=== PATIENT | female | born 1985 | race African-American/Black ===

== ENCOUNTER 2018-08-12 17:03 | Inpatient (IN) | payer OTHER ==
[2018-08-12 19:09] VITALS: BMI 39.3
--- NOTE | 2018-08-12 20:41 | HP ---
CIWA Score - Admission Criteria OASAS Guidelines: Admission for Medically Managed Detox: Requires at least one of the followin. CIWA greater than 12 2. Seizures within the past 24 hours 3. Delirium tremens within the past 24 hours 4. Hallucinations within the past 24 hours 5. Acute intervention needed for co occurring medical disorder 6. Acute intervention needed for co occurring psychiatric disorder 7. Severe withdrawal that cannot be handled at a lower level of care (continued vomiting, continued diarrhea, abnormal vital signs) requiring intravenous medication and/or fluids 8. Admission ROS S - HPI Chief Complaint: I want to stop using drugs Allergies/Adverse Reactions: Allergies Allergy/AdvReac Type Severity Reaction Status Date / Time Fish Containing Products AdvReac Severe Itching Verified 08/12/18 18:59 History of Present Illness: Began using age 21, using $20/day sometimes more. Sometimes will use all day and all night. Also smoking marijuana 3x weekly. Has been smoking consistently without stopping. Exam Limitations: No Limitations - Ebola screening Have you traveled outside of the country in the last 21 days: No Have you had contact with anyone from an Ebola affected area: No - Review of Systems Constitutional: No Symptoms Reported EENT: reports: No Symptoms Reported Respiratory: reports: No Symptoms reported Cardiac: reports: No Symptoms Reported GI: reports: No Symptoms Reported : reports: No Symptoms Reported Musculoskeletal: reports: No Symptoms Reported Integumentary: reports: No Symptoms Reported Neuro: reports: No Symptoms reported Endocrine: reports: No Symptoms Reported Hematology: reports: No Symptoms Reported Psychiatric: reports: Mood/Affect Appropiate Patient History - Patient Medical History Hx Anemia: No Hx Asthma: No Hx Chronic Obstructive Pulmonary Disease (COPD): No Hx Cancer: No Hx Cardiac Disorders: No Hx Congestive Heart Failure: No Hx Hypertension: No Hx Hypercholesterolemia: No Hx Pacemaker: No HX Cerebrovascular Accident: No Hx Seizures: No Hx Dementia: No Hx Diabetes: No Hx Gastrointestinal Disorders: No Hx Liver Disease: Yes Hx Genitourinary Disorders: No Hx Sexually Transmitted Disorders: No Hx Renal Disease (ESRD): No Hx Thyroid Disease: No Hx Human Immunodeficiency Virus (HIV): No Hx Hepatitis C: Yes Hx Depression: Yes Hx Suicide Attempt: No Hx Bipolar Disorder: No Hx Schizophrenia: Yes - Patient Surgical History Past Surgical History: Yes Hx Section: Yes (c section x 2) - Reproductive History Patient is a Female of Child Bearing Age (11 -55 yrs old): Yes Last Menstrual Period: 08/01/18 LMP comment: Patient : No - Smoking Cessation Smoking history: Current every day smoker Have you smoked in the past 12 months: Yes Aproximately how many cigarettes per day: 10 Initiated information on smoking cessation: Yes 'Breaking Loose' booklet given: 08/12/18 - Substances abused Crack Substance route: Smoking Frequency: Daily Amount used: 20 dollars Age of first use: 21 Date of last use: 08/06/18 Cocaine Substance route: Smoking Frequency: Daily Amount used: 20 dollars Age of first use: 21 Date of last use: 08/06/18 Marijuana/Hashish Substance route: Smoking Frequency: Daily Amount used: 10 dollars worth Age of first use: Date of last use: 08/06/18 Family Disease History - Family Disease History Family Disease History: Other: Mother (marijuana) Admission Physical Exam BHS - Vital Signs Vital Signs: Vital Signs - 24 hr 08/12/18 18:57 Temperature 97.1 F L Pulse Rate 81 Respiratory 16 Rate Blood Pressure 161/88 - Physical General Appearance: Yes: No Apparent Distress HEENTM: Yes: EOMI Respiratory: Yes: Lungs Clear Neck: Yes: Within Normal Limits Breast: Yes: Breast Exam Deferred Cardiology: Yes: Within Normal Limits, Regular Rate, S1, S2 Abdominal: Yes: Within Normal Limits Genitourinary: Yes: Within Normal Limits Back: Yes: Within Normal Limits Musculoskeletal: Yes: Within Normal Limits Extremities: Yes: Within Normal Limits, Other (mild crepitusleft knee echymoses does not recall trauma) Neurological: Yes: Within Normal Limits, stuntman II-XII NML intact, Fully Oriented, Alert, Motor Strength 5/5 Integumentary: Yes: Within Normal Limits Lymphatic: Yes: Within Normal Limits - Diagnostic (1) Cocaine abuse Current Visit: Yes Status: Acute (2) Cannabis abuse Current Visit: Yes Status: Acute (3) Schizophrenia Current Visit: Yes Status: Chronic (4) Hepatitis C Current Visit: Yes Status: Chronic Breathalyzer - Breathalyzer Breathalyzer: 0 Urine Drug Screen - Test Device Lot number: [id number] Expiration date: 04/07/20 - Control Is test valid?: Yes - Results Drug screen NEGATIVE: No Urine drug screen results: THC-Marijuana, PATRICK-Cocaine Inpatient Rehab Admission - Rehab Decision to Admit Inpatient rehab admission?: Yes - Initial Determination Are CD services needed?: No Free of communicable disease: Yes Not in need of hospitalization: No - Rehab Admission Criteria Previous failed treatment: No Poor recovery environment: Yes Comorbidities: Yes Lacks judgement: Yes Patient is meeting Inpatient Rehab admission criteria:: Yes (pt meets criteria based on continuous use pattern, unsafe environment)
[2018-08-12] MEDS ORDERED: guaiFENesin 200 MG/10 ML 10 ML UNIT-DOSE CUPS PO PRN (20:48)
[2018-08-12] MEDS ORDERED: P-EPHED 60MG/TRIPROLIDI 2.5MG TABLET PO PRN (20:48)
[2018-08-12] MEDS ORDERED: MAG HYDROX/AL HYDROX/SIMETH 30 ML UNIT-DOSE CUP PO PRN (20:48)
[2018-08-12] MEDS ORDERED: MAGNESIUM HYDROX 2400MG/30ML ORAL SUSPENSION 30 ML CUP PO PRN (20:48)
[2018-08-12] MEDS ORDERED: MENTHOL/PHENOL 1 EACH UD MM PRN (20:48)
[2018-08-12] MEDS ORDERED: LOPERAMIDE HCL 2 MG CAPSULE PO PRN (20:48)
[2018-08-12] MEDS ORDERED: MAGNESIUM CITRATE 300 ML BOTTLE PO PRN (20:48)
[2018-08-12] MEDS: THIAMINE HCL 100 MG TABLET (FP) PO SCH (22:24)
[2018-08-13] MEDS: PRENATAL VITAMINS W/ FOLIC ACID TABLET (FP) PO SCH (10:40)
[2018-08-13 12:48] LABS: URINE APPEARANCE CLEAR; URINE BILIRUBIN NEGATIVE (NEGATIVE); URINE COLOR YELLOW; URINE GLUCOSE (UA) NEGATIVE (NEGATIVE); URINE KETONE NEGATIVE (NEGATIVE); URINE LEUK ESTERASE NEGATIVE (NEGATIVE); URINE NITRITE NEGATIVE (NEGATIVE); URINE PROTEIN NEGATIVE (NEGATIVE); URINE UROBILINOGEN 0.2 mg/dL (0.2-1.0)
[2018-08-13] MEDS: THIAMINE HCL 100 MG TABLET (FP) PO SCH (21:41)
[2018-08-14] MEDS: PRENATAL VITAMINS W/ FOLIC ACID TABLET (FP) PO SCH (10:16)
[2018-08-14] MEDS: THIAMINE HCL 100 MG TABLET (FP) PO SCH (21:11)
[2018-08-15] MEDS: PRENATAL VITAMINS W/ FOLIC ACID TABLET (FP) PO SCH (09:46)
[2018-08-15 14:52] LABS: HEMATOCRIT 34.4 % (32.4-45.2); HEMOGLOBIN 11.4 GM/dL (10.7-15.3); MEAN CELL VOLUME 84.7 fl (80-96); MEAN PLT VOLUME 9.9 fl (7.5-11.1); PLATELET COUNT 165 K/MM3 (134-434); RBC 4.07 M/mm3 (3.60-5.2); WHITE BLOOD COUNT 4.2 K/mm3 (4.0-10.0)
[2018-08-15 15:22] LABS: ALBUMIN 3.2 g/dl (3.4-5.0); BILIRUBIN,TOTAL 0.3 mg/dL (0.2-1); CALCIUM 8.5 mg/dL (8.5-10.1); CREATININE 0.7 mg/dL (0.55-1.3); POTASSIUM 4.1 mmol/L (3.5-5.1)
[2018-08-15 15:30] LABS: BLOOD UREA NITROGEN 14.9 mg/dL (7-18)
[2018-08-15] MEDS: THIAMINE HCL 100 MG TABLET (FP) PO SCH (21:24)
[2018-08-16] MEDS: PRENATAL VITAMINS W/ FOLIC ACID TABLET (FP) PO SCH (09:33)
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
[2018-08-16] MEDS: THIAMINE HCL 100 MG TABLET (FP) PO SCH (21:23)
[2018-08-16] MEDS: IBUPROFEN 400 MG TABLET (FP) PO PRN (21:23)
[2018-08-17] MEDS: PRENATAL VITAMINS W/ FOLIC ACID TABLET (FP) PO SCH (09:27)
--- NOTE | 2018-08-17 12:17 | PN ---
S Progress Note (SOAP) Subjective: patient reporting that she has arthritis in the right knee. Objective: Full ROM, crepitis on flexion/extension. ROM-WNL 08/17/18 12:15 Assessment: Osteoarthritis, right knee 08/17/18 12:15 Plan: PLAN: patient has tylenol and motrin. Advised patient to ask for tylenol and if no effective use motrin. Also instructed to continue to walk to avoid stiffness in the joint. Will continue to monitor, and if needed increase dose.
[2018-08-17] MEDS: THIAMINE HCL 100 MG TABLET (FP) PO SCH (21:10)
[2018-08-18] MEDS: PRENATAL VITAMINS W/ FOLIC ACID TABLET (FP) PO SCH (09:42)
[2018-08-18] MEDS: THIAMINE HCL 100 MG TABLET (FP) PO SCH (21:24)
[2018-08-18] MEDS: MELATONIN 5 MG TABLETS PO PRN (21:25)
[2018-08-19] MEDS: PRENATAL VITAMINS W/ FOLIC ACID TABLET (FP) PO SCH (10:15)
--- NOTE | 2018-08-19 13:44 | PN ---
[facility] Progress Note (SOAP) Subjective: " I would like to be tested for DM. I have gained weight and my DrBrigette told me I had sugar problems before." Patient has Family hx of dm- father however denies increased thirst, urination and hunger. Objective: 08/19/18 13:42 Vital Signs Temperature 97.1 F L 08/12/18 18:57 Pulse Rate 81 08/12/18 18:57 Respiratory Rate 18 08/19/18 07:06 Blood Pressure 161/88 08/12/18 18:57 O2 Sat by Pulse Oximetry (%) Laboratory Tests 08/12/18 08/13/18 08/15/18 20:22 08:00 13:00 WBC RBC Hgb Hct MCV MCH MCHC RDW Plt Count MPV Sodium Potassium Chloride Carbon Dioxide Anion Gap BUN Creatinine Est GFR (CKD-EPI)AfAm Est GFR (CKD-EPI)NonAf Random Glucose Calcium Total Bilirubin AST ALT Alkaline Phosphatase Total Protein Albumin Urine Color Yellow Urine Appearance Clear Urine pH 5.0 Ur Specific Bulger 1.026 Urine Protein Negative Urine Glucose (UA) Negative Urine Ketones Negative Urine Blood Negative Urine Nitrite Negative Urine Bilirubin Negative Urine Urobilinogen 0.2 Ur Leukocyte Esterase Negative POC Urine HCG, Qual Negative RPR Titer TB Test (QFT) Nil 0.09 TB Test (QFT) Mitogen >10.00 TB Test (QFT) Antigen 0.20 TB Test (QFT) Negative TB Positive Criteria 08/15/18 08/15/18 08/15/18 13:15 13:15 13:15 WBC 4.2 RBC 4.07 Hgb 11.4 Hct 34.4 MCV 84.7 MCH 28.0 MCHC 33.0 RDW 16.0 H Plt Count 165 MPV 9.9 Sodium 140 Potassium 4.1 Chloride 106 Carbon Dioxide 29 Anion Gap 5 L BUN 14.9 Creatinine 0.7 Est GFR (CKD-EPI)AfAm 133.81 Est GFR (CKD-EPI)NonAf 115.45 Random Glucose 105 Calcium 8.5 Total Bilirubin 0.3 AST 36 ALT 65 H Alkaline Phosphatase 71 Total Protein 7.0 Albumin 3.2 L Urine Color Urine Appearance Urine pH Ur Specific Bulger Urine Protein Urine Glucose (UA) Urine Ketones Urine Blood Urine Nitrite Urine Bilirubin Urine Urobilinogen Ur Leukocyte Esterase POC Urine HCG, Qual RPR Titer Nonreactive TB Test (QFT) Nil TB Test (QFT) Mitogen TB Test (QFT) Antigen TB Test (QFT) TB Positive Criteria alert and oriented x 3 skin warm and dry +perrla, eoms intact bl full rom amb ad radha Assessment: 08/19/18 13:43 A/P Family hx of DM Plan: will order fasting bgm x 2 days monitor clinically 08/19/18 13:43
[2018-08-19] MEDS: MELATONIN 5 MG TABLETS PO PRN (21:34)
[2018-08-19] MEDS: THIAMINE HCL 100 MG TABLET (FP) PO SCH (21:34)
[2018-08-20] MEDS: PRENATAL VITAMINS W/ FOLIC ACID TABLET (FP) PO SCH (09:07)
[2018-08-20] MEDS: IBUPROFEN 400 MG TABLET (FP) PO PRN (19:16)
[2018-08-20] MEDS: ACETAMINOPHEN 325 MG TABLET (FP) PO PRN (21:16)
[2018-08-20] MEDS: THIAMINE HCL 100 MG TABLET (FP) PO SCH (21:16)
[2018-08-20] MEDS: MELATONIN 5 MG TABLETS PO PRN (21:17)
[2018-08-21 07:06] VITALS: BP 132/91; PULSE 71; TEMP 97
[2018-08-21] MEDS: PRENATAL VITAMINS W/ FOLIC ACID TABLET (FP) PO SCH (10:10)
[2018-08-21] MEDS: ACETAMINOPHEN 325 MG TABLET (FP) PO PRN (12:40)
--- NOTE | 2018-08-21 18:13 | DS ---
[facility] Detox Discharge Summary Admission Date: 08/12/18 Discharge Date: 08/21/18 (informed by nursing pt is administratively d/c ) - Physical Exam Results Vital Signs: Vital Signs Temperature 97.0 F L 08/21/18 07:05 Pulse Rate 71 08/21/18 07:05 Respiratory Rate 18 08/21/18 07:05 Blood Pressure 132/91 08/21/18 07:05 O2 Sat by Pulse Oximetry (%) - Medication Discharge Medications: Ambulatory Orders Quetiapine Fumarate [Seroquel] 100 mg PO BID 08/12/18
== END 2018-08-21 18:40 | disposition left against medical advice (07) | DRG 895 ==
LOC: YASAS 17:03 → Y3E 21:52
PROVIDERS: ADMIT Neuromusculoskeletal Medicine & OMM; ATTEND Neuromusculoskeletal Medicine & OMM
PROC: HZ42ZZZ Group Counseling for Substance Abuse Treatment, Cognitive-Behavioral (ICD-10-PCS; principal; 2018-08-12)
DX: F14.20 Cocaine dependence, uncomplicated (principal); F19.282 Other psychoactive substance dependence with psychoactive substance-induced sleep disorder; F12.20 Cannabis dependence, uncomplicated; F17.210 Nicotine dependence, cigarettes, uncomplicated; F25.9 Schizoaffective disorder, unspecified; F32.9 Major depressive disorder, single episode, unspecified; B18.2 Chronic viral hepatitis C
CPT/HCPCS: 36415; 80053; 81003; 81025; 82962; 85027; 86480; 86593

== ENCOUNTER 2019-01-17 18:14 | Inpatient (IN) | payer OTHER ==
[2019-01-17 18:51] VITALS: BMI 39.4
--- NOTE | 2019-01-17 21:19 | HP ---
CIWA Score - Admission Criteria OASAS Guidelines: Admission for Medically Managed Detox: Requires at least one of the followin. CIWA greater than 12 2. Seizures within the past 24 hours 3. Delirium tremens within the past 24 hours 4. Hallucinations within the past 24 hours 5. Acute intervention needed for co occurring medical disorder 6. Acute intervention needed for co occurring psychiatric disorder 7. Severe withdrawal that cannot be handled at a lower level of care (continued vomiting, continued diarrhea, abnormal vital signs) requiring intravenous medication and/or fluids 8. Admitting History and Physical - Past Medical History ...LMP: 08/04/18 - Smoking History Smoking history: Current every day smoker Have you smoked in the past 12 months: Yes Aproximately how many cigarettes per day: 10 Admission ROS [facility] Chief Complaint: SEEKING INPATIENT TXMENT FOR THC AND COCAINE DEPENDENCE Allergies/Adverse Reactions: Allergies Allergy/AdvReac Type Severity Reaction Status Date / Time No Known Drug Allergies Allergy Verified 01/18/19 18:12 Fish Containing Products AdvReac Severe Itching Verified 01/17/19 18:40 History of Present Illness: ADMITTED TO REHAB FOR CANNABIS AND COCAINE DEPENDENCE. CLIENT IS REFERRED BY [facility] AFTER BEING SEEN THERE AND CLEARED FOR FEELING OF DEPRESSION. CLIENT REPORTS NEEDING HELP TO STOP HER DRUG ADDICTION. DENIES SI/HI. SEE ATTACHED DISCHARGE PAPERS. REPORTS DAILY USE OF BOTH SUBSTANCES. LAST USE 1 DAY AGO. DENIES HX/O OVERDOSE, BLACK OTS, IVDU. DENIES ANY SIGNIFICANT PERIOD OF CLEAN TIME. HOMELESS-JAIL, UNEMPLOYED, DENIES LEGALS Exam Limitations: No Limitations - Ebola screening Have you traveled outside of the country in the last 21 days: No (N) Have you had contact with anyone from an Ebola affected area: No Do you have a fever: No - Review of Systems Constitutional: No Symptoms Reported EENT: reports: Nose Congestion, Throat Pain (SORE X 2 DAYS) Respiratory: reports: Cough (DRY- X 2 DAYS) Cardiac: reports: No Symptoms Reported GI: reports: No Symptoms Reported : reports: No Symptoms Reported Musculoskeletal: reports: No Symptoms Reported Integumentary: reports: No Symptoms Reported Neuro: reports: No Symptoms reported Endocrine: reports: No Symptoms Reported Hematology: reports: No Symptoms Reported Psychiatric: reports: Orientated x3, Anxious Other Systems: Reviewed and Negative Patient History - Patient Medical History Hx Anemia: No Hx Asthma: No Hx Chronic Obstructive Pulmonary Disease (COPD): No Hx Cancer: No Hx Cardiac Disorders: No Hx Congestive Heart Failure: No Hx Hypertension: No Hx Hypercholesterolemia: No Hx Pacemaker: No HX Cerebrovascular Accident: No Hx Seizures: No Hx Dementia: No Hx Diabetes: No Hx Gastrointestinal Disorders: No Hx Liver Disease: Yes Hx Genitourinary Disorders: No Hx Sexually Transmitted Disorders: No Hx Renal Disease (ESRD): No Hx Thyroid Disease: No Hx Human Immunodeficiency Virus (HIV): No Hx Hepatitis C: Yes Hx Depression: No Hx Suicide Attempt: No Hx Bipolar Disorder: No Hx Schizophrenia: Yes - Patient Surgical History Past Surgical History: Yes Hx Neurologic Surgery: No Hx Cataract Extraction: No Hx Cardiac Surgery: No Hx Lung Surgery: No Hx Breast Surgery: No Hx Breast Biopsy: No Hx Abdominal Surgery: No Hx Appendectomy: No Hx Cholecystectomy: No Hx Genitourinary Surgery: No Hx Section: Yes (c section x 2) Hx Orthopedic Surgery: No Anesthesia Reaction: No - PPD History Previous Implant?: No Implanted On Prior [facility] Admission?: No Results: TB GOLD 08/2018 PPD to be Administered?: No - Reproductive History LMP comment: 12/30/2018- IRREG Patient : No (NEG UCG) - Smoking Cessation Smoking history: Current every day smoker Have you smoked in the past 12 months: Yes Aproximately how many cigarettes per day: 1 Cigars Per Day: 0 Hx Chewing Tobacco Use: No Initiated information on smoking cessation: Yes 'Breaking Loose' booklet given: 01/17/19 - Substance & Tx. History Hx Alcohol Use: No Hx Substance Use: Yes Substance Use Type: Cocaine, Marijuana Hx Substance Use Treatment: Yes ([facility]) - Substances abused Crack Substance route: Smoking Frequency: Daily Amount used: 20 dollars Age of first use: 21 Date of last use: 08/06/18 Cocaine Substance route: Smoking Frequency: Daily Amount used: 20 dollars Age of first use: 21 Date of last use: 01/17/19 Marijuana/Hashish Substance route: Smoking Frequency: Daily Amount used: 10 dollars worth Age of first use: 21 Date of last use: 01/16/19 Admission Physical Exam BHS - Vital Signs Vital Signs: Vital Signs - 24 hr 01/17/19 18:29 Temperature 98.4 F Pulse Rate 87 Respiratory 20 Rate Blood Pressure 130/84 - Physical General Appearance: Yes: Obese, Anxious HEENTM: Yes: EOMI, Normocephalic, Normal Voice, [place], Pharynx Normal, Nasal Congestion, Rhinorrhea Respiratory: Yes: Chest Non-Tender, Lungs Clear, Normal Breath Sounds, No Respiratory Distress, No Accessory Muscle Use Neck: Yes: No masses,lesions,Nodules, Supple, Trachea in good position Breast: Yes: Breasts Symetrical Cardiology: Yes: Regular Rhythm, Regular Rate, S1, S2 Abdominal: Yes: Non Tender, Soft, Increased Bowel Sounds, Protuberent Genitourinary: Yes: Within Normal Limits Back: Yes: Normal Inspection Musculoskeletal: Yes: full range of Motion, Gait Steady Extremities: Yes: Normal Range of Motion, Non-Tender Neurological: Yes: Fully Oriented, Alert, Motor Strength 5/5 Integumentary: Yes: Dry, Warm Lymphatic: Yes: Within Normal Limits - Diagnostic (1) Lives in homeless nursing home Current Visit: Yes Status: Acute Comment: REPORTED (2) Cocaine dependence Current Visit: Yes Status: Chronic (3) Substance-induced sleep disorder Current Visit: Yes Status: Acute (4) Nicotine dependence Current Visit: Yes Status: Chronic (5) Schizophrenia Current Visit: Yes Status: Chronic (6) Cannabis dependence, uncomplicated Current Visit: Yes Status: Acute Cleared for Admission BHS - Detox or Rehab Detox Regimen/Protocol: Not Applicable Claeared for Rehab Admission: Yes Breathalyzer - Breathalyzer Breathalyzer: 0 Urine Drug Screen - Test Device Lot number: [id number] Expiration date: 09/06/20 - Control Is test valid?: Yes - Results Drug screen NEGATIVE: No Urine drug screen results: THC-Marijuana, PATRICK-Cocaine Inpatient Rehab Admission - Rehab Decision to Admit Inpatient rehab admission?: Yes - Initial Determination Are CD services needed?: Yes Free of communicable disease: Yes Not in need of hospitalization: Yes - Rehab Admission Criteria Previous failed treatment: Yes Poor recovery environment: Yes Comorbidities: Yes Lacks judgement: No Patient is meeting Inpatient Rehab admission criteria:: Yes
[2019-01-17] MEDS ORDERED: guaiFENesin 200 MG/10 ML 10 ML UNIT-DOSE CUPS PO PRN (21:26)
[2019-01-17] MEDS ORDERED: LOPERAMIDE HCL 2 MG CAPSULE PO PRN (21:26)
[2019-01-17] MEDS ORDERED: MAG HYDROX/AL HYDROX/SIMETH 30 ML UNIT-DOSE CUP PO PRN (21:26)
[2019-01-17] MEDS ORDERED: MAGNESIUM HYDROX 2400MG/30ML ORAL SUSPENSION 30 ML CUP PO PRN (21:26)
[2019-01-17] MEDS ORDERED: hydrOXYzine PAMOATE 50 MG CAPSULE (FP) PO PRN (21:26)
[2019-01-17] MEDS ORDERED: P-EPHED 60MG/TRIPROLIDI 2.5MG TABLET PO PRN (21:26)
[2019-01-17] MEDS ORDERED: IBUPROFEN 400 MG TABLET (FP) PO PRN (21:26)
[2019-01-17] MEDS ORDERED: MENTHOL/PHENOL 1 EACH UD MM PRN (21:26)
[2019-01-17] MEDS ORDERED: NICOTINE POLACRILEX 2 MG GUM BUC PRN (21:26)
[2019-01-17] MEDS ORDERED: ACETAMINOPHEN 325 MG TABLET (FP) PO PRN (21:26)
[2019-01-17] MEDS ORDERED: MAGNESIUM CITRATE 300 ML BOTTLE PO PRN (21:26)
[2019-01-17] MEDS ORDERED: MELATONIN 5 MG TABLETS PO PRN (22:00)
[2019-01-17] MEDS: THIAMINE HCL 100 MG TABLET (FP) PO SCH (23:13)
[2019-01-18] MEDS: PRENATAL VITAMINS W/ FOLIC ACID TABLET (FP) PO SCH (09:12)
--- NOTE | 2019-01-18 10:09 | PN ---
[facility] Progress Note (SOAP) Subjective: Admitted to [facility] rehab PMHx: ADMITTED TO REHAB FOR CANNABIS AND COCAINE DEPENDENCE. CLIENT IS REFERRED BY [facility] AFTER BEING SEEN THERE AND CLEARED FOR FEELING OF DEPRESSION. CLIENT REPORTS NEEDING HELP TO STOP HER DRUG ADDICTION. DENIES SI/HI. REPORTS DAILY USE OF BOTH SUBSTANCES. DENIES HX/O OVERDOSE, BLACK OTS, IVDU. DENIES ANY SIGNIFICANT PERIOD OF CLEAN TIME. HOMELESS-ASSISTED, UNEMPLOYED, DENIES LEGALS Objective: P/E General: No apparent distress Neuro: CN 2-12 intact MSK: full weight bearing. Vital Signs Period Temp Pulse Resp BP Sys/Andres Pulse Ox Last 24 Hr 98.4 F-99.1 F 81-87 18-20 127-130/82-84 01/18/19 10:10 Assessment: Admitted to rehab 01/18/19 10:11 Plan: Continue treatment Maintain safety Psych consult to review home medications.
--- NOTE | 2019-01-18 12:34 | PN ---
[facility] Progress Note Note: Psychiatric nurse practitioner note: Single Pass Soil Stabilizer Operator attempted to see patient this morning but patient stated she was too tired to be seen and would prefer to be seen later today. Nursing staff informed.
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
[2019-01-18] MEDS: QUEtiapine FUMARATE 100 MG TABLET (FP) PO SCH (21:47)
[2019-01-18] MEDS: THIAMINE HCL 100 MG TABLET (FP) PO SCH (21:47)
[2019-01-19] MEDS: PRENATAL VITAMINS W/ FOLIC ACID TABLET (FP) PO SCH (10:58)
[2019-01-19] MEDS: QUEtiapine FUMARATE 100 MG TABLET (FP) PO SCH ×2 (10:58→22:11)
[2019-01-19] MEDS: THIAMINE HCL 100 MG TABLET (FP) PO SCH (22:11)
[2019-01-20] MEDS: QUEtiapine FUMARATE 100 MG TABLET (FP) PO SCH ×2 (10:16→21:58)
[2019-01-20] MEDS: PRENATAL VITAMINS W/ FOLIC ACID TABLET (FP) PO SCH (10:17)
[2019-01-20] MEDS: THIAMINE HCL 100 MG TABLET (FP) PO SCH (21:58)
[2019-01-21] MEDS: QUEtiapine FUMARATE 100 MG TABLET (FP) PO SCH ×2 (09:49→21:43)
[2019-01-21] MEDS: PRENATAL VITAMINS W/ FOLIC ACID TABLET (FP) PO SCH (09:49)
[2019-01-21] MEDS: THIAMINE HCL 100 MG TABLET (FP) PO SCH (21:43)
[2019-01-22 07:23] VITALS: TEMP 98.1
[2019-01-22] MEDS: QUEtiapine FUMARATE 100 MG TABLET (FP) PO SCH ×2 (09:52→21:38)
[2019-01-22] MEDS: PRENATAL VITAMINS W/ FOLIC ACID TABLET (FP) PO SCH (09:52)
[2019-01-22] MEDS: THIAMINE HCL 100 MG TABLET (FP) PO SCH (21:39)
[2019-01-23] MEDS: QUEtiapine FUMARATE 100 MG TABLET (FP) PO SCH ×2 (10:03→22:05)
[2019-01-23] MEDS: PRENATAL VITAMINS W/ FOLIC ACID TABLET (FP) PO SCH (10:04)
[2019-01-23 15:12] LABS: PH,URINE 5.5 (5.0-8.0); URINE APPEARANCE CLEAR; URINE BILIRUBIN NEGATIVE (NEGATIVE); URINE COLOR YELLOW; URINE GLUCOSE (UA) NEGATIVE (NEGATIVE); URINE KETONE NEGATIVE (NEGATIVE); URINE LEUK ESTERASE NEGATIVE (NEGATIVE); URINE NITRITE NEGATIVE (NEGATIVE); URINE PROTEIN NEGATIVE (NEGATIVE); URINE UROBILINOGEN 0.2 mg/dL (0.2-1.0)
[2019-01-23] MEDS: THIAMINE HCL 100 MG TABLET (FP) PO SCH (22:05)
[2019-01-24] MEDS: QUEtiapine FUMARATE 100 MG TABLET (FP) PO SCH ×2 (10:31→21:22)
[2019-01-24] MEDS: PRENATAL VITAMINS W/ FOLIC ACID TABLET (FP) PO SCH (10:31)
--- NOTE | 2019-01-24 12:45 | PN ---
[facility] Progress Note Note: Pt is a 33 y/o female admitted to rehab for hx of VERONICA. Nurses and counselors report pt in bed most time and only gets up for meals and snacks. Report pt has refused admission Lab work, refuses vital signs, last BP was on 01/22/19, and refuses to get up for medications but took it if taken to her room. This newspaper writer went to see pt who was laying in bed to check up on her to ask how she was feeling. Asked pt how she was feeling and she responded "I'm discharging today" . Asked pt who is discharging her and she responded I'm discharging myself" and turned around in bed. Further probe to find out why she wants to discharge and stating "I don't want to talk to you" and turned away in bed. Vital Signs (72 hours) 01/22/19 01/22/19 01/22/19 00:30 03:30 07:22 Temperature 98.1 F Pulse Rate 76 Respiratory 18 18 18 Rate Blood Pressure 115/76 01/23/19 01/23/19 01/23/19 00:30 03:30 06:30 Temperature Pulse Rate Respiratory 18 18 18 Rate Blood Pressure 01/23/19 01/24/19 01/24/19 06:54 00:30 03:30 Temperature Pulse Rate Respiratory 18 17 18 Rate Blood Pressure 01/24/19 01/24/19 06:30 07:23 Temperature Pulse Rate Respiratory 18 18 Rate Blood Pressure Pt is alert o x 3,denies s/h/i speech clear and coherent in nad A/P Hx Depression Noncompliant with medical care/interventions Monitor pt's behavior Will d/w pt to consider psych for re-evaluation.
[2019-01-24] MEDS: THIAMINE HCL 100 MG TABLET (FP) PO SCH (21:22)
[2019-01-25] MEDS: PRENATAL VITAMINS W/ FOLIC ACID TABLET (FP) PO SCH (10:15)
[2019-01-25] MEDS: QUEtiapine FUMARATE 100 MG TABLET (FP) PO SCH ×2 (10:15→21:22)
--- NOTE | 2019-01-25 11:43 | PN ---
[facility] Progress Note Note: Pt was spoken to this morning with multidisciplinary team in her counselors office on . In attendance were: this com writer,the pt's counselor Ms Lui, and Nurse Ms Ellie Viera. Pt was very receptive to encouragement from staff and agreed to go to group, take her medications and come out for vital signs. she is also agreeable to expressing herself to let staff know her needs. Pt requests today to speak with psych provider. Vital Signs - 24 hr 01/25/19 01/25/19 01/25/19 00:30 03:30 07:18 Respiratory 18 Rate Laboratory Tests 01/17/19 01/22/19 20:52 12:15 Urine Color Yellow Urine Appearance Clear Urine pH 5.5 Ur Specific [place] 1.024 Urine Protein Negative Urine Glucose (UA) Negative Urine Ketones Negative Urine Blood Negative Urine Nitrite Negative Urine Bilirubin Negative Urine Urobilinogen 0.2 Ur Leukocyte Esterase Negative POC Urine HCG, Qual Negative Alert o x 3 nad oob ambulating with steady gait A/P rehab pt needing counseling due to noncompliant with medical interventions. On d/w pt: pt is agreeable to poc Labs reordered-CBC,CMP and RPR for tomorrow. pt signed behavior contract in the presence of the team. follow up with psych consult as directed. encouraged to inform staff of any change in status or discomfort.
[2019-01-25] MEDS: THIAMINE HCL 100 MG TABLET (FP) PO SCH (21:22)
[2019-01-26] MEDS: QUEtiapine FUMARATE 100 MG TABLET (FP) PO SCH ×2 (09:24→21:49)
[2019-01-26] MEDS: PRENATAL VITAMINS W/ FOLIC ACID TABLET (FP) PO SCH (09:24)
--- NOTE | 2019-01-26 12:28 | PN ---
[facility] Progress Note Note: Labs drawn and results pending. pt is oob ambulatory ad radha. Vital Signs - 24 hr 01/26/19 03:30 Respiratory 18 Rate Laboratory Tests 01/17/19 01/22/19 20:52 12:15 Urine Color Yellow Urine Appearance Clear Urine pH 5.5 Ur Specific [place] 1.024 Urine Protein Negative Urine Glucose (UA) Negative Urine Ketones Negative Urine Blood Negative Urine Nitrite Negative Urine Bilirubin Negative Urine Urobilinogen 0.2 Ur Leukocyte Esterase Negative POC Urine HCG, Qual Negative maintain safety.
[2019-01-26 14:10] LABS: HEMATOCRIT 36.9 % (32.4-45.2); MCH 27.8 pg (25.7-33.7); MCHC 32.5 g/dl (32.0-36.0); MEAN CELL VOLUME 85.5 fl (80-96); MEAN PLT VOLUME 10.6 fl (7.5-11.1); PLATELET COUNT 163 K/MM3 (134-434); RBC 4.32 M/mm3 (3.60-5.2); RDW 15.5 % (11.6-15.6); WHITE BLOOD COUNT 5.1 K/mm3 (4.0-10.0)
[2019-01-26 14:14] LABS: ALBUMIN 3.3 g/dl (3.4-5.0); BILIRUBIN,TOTAL 0.3 mg/dL (0.2-1); BLOOD UREA NITROGEN 19.3 mg/dL (7-18); CALCIUM 8.7 mg/dL (8.5-10.1); CREATININE 0.6 mg/dL (0.55-1.3); POTASSIUM 4.2 mmol/L (3.5-5.1); TOT PROT 7.2 g/dl (6.4-8.2)
[2019-01-26] MEDS: THIAMINE HCL 100 MG TABLET (FP) PO SCH (21:49)
[2019-01-27] MEDS: QUEtiapine FUMARATE 100 MG TABLET (FP) PO SCH ×2 (10:51→21:38)
[2019-01-27] MEDS: PRENATAL VITAMINS W/ FOLIC ACID TABLET (FP) PO SCH (10:53)
[2019-01-27] MEDS ORDERED: HYDROCORTISONE 0.5% TOPICAL CREAM 30 GM TUBE TP PRN (15:49)
--- NOTE | 2019-01-27 15:55 | PN ---
S Progress Note Note: Reported by LOPEZ Viera that patient c/o itchy rash to chest area. Will order hydrocortisone 0.5% cream BID prn. Vital Signs Temperature 98.1 F 01/22/19 07:22 Pulse Rate 76 01/22/19 07:22 Respiratory Rate 18 01/27/19 03:30 Blood Pressure 115/76 01/22/19 07:22 O2 Sat by Pulse Oximetry (%)
[2019-01-27] MEDS: THIAMINE HCL 100 MG TABLET (FP) PO SCH (21:38)
[2019-01-28] MEDS: QUEtiapine FUMARATE 100 MG TABLET (FP) PO SCH (10:55)
[2019-01-28] MEDS: PRENATAL VITAMINS W/ FOLIC ACID TABLET (FP) PO SCH (10:55)
[2019-01-28 12:30] VITALS: BP 106/69; PULSE 80
--- NOTE | 2019-01-28 14:50 | PN ---
S Progress Note Note: patient did not want to complete treatment,seen by counselorvinicio to be discharged back to [facility] out patient program.stable for discharge
--- NOTE | 2019-01-28 14:57 | DS ---
[facility] Rehab Discharge Summary - [facility] Rehab Discharge Summary Admission Date: 01/17/19 Discharge Date: 01/28/19 - History Present History: Cannabis dependence, Cocaine dependence Pertinent Past History: schizophrenia - Discharge Physical Exam Vital Signs: Vital Signs Temperature 98.1 F 01/22/19 07:22 Pulse Rate 80 01/28/19 12:29 Respiratory Rate 18 01/28/19 12:29 Blood Pressure 106/69 01/28/19 12:29 O2 Sat by Pulse Oximetry (%) Pertinent Admission Physical Exam Findings: Vital Signs Temperature 98.1 F 01/22/19 07:22 Pulse Rate 80 01/28/19 12:29 Respiratory Rate 18 01/28/19 12:29 Blood Pressure 106/69 01/28/19 12:29 O2 Sat by Pulse Oximetry (%) - Treatment Discharge Condition: Discharge condition good Hospital Course: stable for discharge to detention,no suicidal,no homicidal,follow up with own psychiatrist for follow up - Medication Discharge Medications: Ambulatory Orders Quetiapine Fumarate [Seroquel] 100 mg PO BID 08/12/18 Haloperidol [Haldol -] 1 tablet PO HS 01/17/19 95/Iron Fum/Folic/Dha 1 tablet PO DAILY 01/17/19 - Discharge Instructions Diet, activity, other medical instructions: Diet: Activity: Other medical instructions: - Diagnosis (1) Cannabis dependence, uncomplicated Current Visit: Yes Status: Acute (2) Lives in homeless detention Current Visit: Yes Status: Acute (3) Cocaine dependence Current Visit: Yes Status: Chronic (4) Nicotine dependence Current Visit: Yes Status: Chronic (5) Schizophrenia Current Visit: Yes Status: Chronic (6) Hepatitis C Current Visit: No Status: Chronic - AMA Did Patient Leave Against Medical Advice: No
== END 2019-01-28 14:33 | disposition home or self-care (01) | DRG 895 ==
LOC: YASAS 18:14 → Y3E 21:29
PROVIDERS: ADMIT Neuromusculoskeletal Medicine & OMM; ATTEND Neuromusculoskeletal Medicine & OMM
PROC: HZ42ZZZ Group Counseling for Substance Abuse Treatment, Cognitive-Behavioral (ICD-10-PCS; principal; 2019-01-17)
DX: F10.20 Alcohol dependence, uncomplicated (principal); F19.282 Other psychoactive substance dependence with psychoactive substance-induced sleep disorder; F12.20 Cannabis dependence, uncomplicated; F17.210 Nicotine dependence, cigarettes, uncomplicated; F20.9 Schizophrenia, unspecified; F19.24 Other psychoactive substance dependence with psychoactive substance-induced mood disorder; B18.2 Chronic viral hepatitis C; L29.9 Pruritus, unspecified; R21 Rash and other nonspecific skin eruption; E66.9 Obesity, unspecified; Z68.39 Body mass index [BMI] 39.0-39.9, adult; Z91.19 Patient's noncompliance with other medical treatment and regimen; Z56.0 Unemployment, unspecified; Z59.0 Homelessness
CPT/HCPCS: 36415; 80053; 81003; 81025; 85027; 86593

== ENCOUNTER 2022-04-10 12:01 | Inpatient (IN) | payer OTHER ==
[2022-04-10 12:46] VITALS: BMI 23.5
[2022-04-10] MEDS ORDERED: LOPERAMIDE HCL 2 MG CAPSULE PO PRN (13:12)
[2022-04-10] MEDS ORDERED: POLYETHYLENE GLYCOL (HEALTHYLAX) 3350 17 GM PACKET PO PRN (13:12)
[2022-04-10] MEDS ORDERED: ACETAMINOPHEN 325 MG TABLET (FP) PO PRN ×2 (13:12)
[2022-04-10] MEDS ORDERED: DICYCLOMINE HCL 10 MG CAPSULE PO PRN (13:12)
[2022-04-10] MEDS ORDERED: hydrOXYzine PAMOATE 25 MG CAPSULE (FP) PO PRN (13:12)
[2022-04-10] MEDS ORDERED: METHOCARBAMOL 500 MG TABLET PO PRN (13:12)
[2022-04-10] MEDS ORDERED: NALOXONE HCL (KLOXXADO) 8 MG SPRAY NS PRN (13:12)
[2022-04-10] MEDS ORDERED: BISMUTH SUBSALICYLATE 524 MG/30 ML PO PRN (13:12)
[2022-04-10] MEDS ORDERED: IBUPROFEN 400 MG TABLET (FP) PO PRN (13:12)
[2022-04-10] MEDS ORDERED: ONDANSETRON *ODT* 4 MG TABLET SL PRN (13:12)
[2022-04-10] MEDS ORDERED: MAG HYDROX/AL HYDROX/SIMETH 30 ML UNIT-DOSE CUP PO PRN (13:12)
[2022-04-10] MEDS ORDERED: BENZOCAINE/MENTHOL (CHLORASEPTIC ) LOZENGE MM PRN (13:12)
[2022-04-10] MEDS ORDERED: NALOXONE HCL 0.4 MG/ML VIAL IM PRN (13:12)
[2022-04-10] MEDS ORDERED: IBUPROFEN 600 MG TABLET (FP) PO PRN (13:12)
[2022-04-10] MEDS ORDERED: MAGNESIUM HYDROX 2400MG/30ML ORAL SUSPENSION 30 ML CUP PO PRN (13:12)
[2022-04-10] MEDS ORDERED: NICOTINE POLACRILEX 2 MG GUM BUC PRN (13:12)
[2022-04-10 17:34] LABS: HEMATOCRIT 33.4 % (32.4-45.2); HEMOGLOBIN 10.7 GM/dL (10.7-15.3); MCH 25.9 pg (25.7-33.7); MEAN CELL VOLUME 80.8 fl (80-96); MEAN PLT VOLUME 10.1 fl (7.5-11.1); PLATELET COUNT 173 10^3/uL (134-434); RBC 4.14 M/mm3 (3.60-5.2); WHITE BLOOD COUNT 4.7 K/mm3 (4.0-10.0)
[2022-04-10 18:09] LABS: ALBUMIN 3.7 g/dl (3.4-5.0)
[2022-04-10 18:12] LABS: CREATININE 0.7 mg/dL (0.55-1.3)
[2022-04-10 18:14] LABS: BILIRUBIN,TOTAL 0.2 mg/dL (0.2-1)
[2022-04-10] MEDS ORDERED: QUEtiapine FUMARATE 100 MG TABLET (FP) PO SCH (22:00)
[2022-04-10] MEDS ORDERED: THIAMINE HCL 100 MG TABLET (FP) PO SCH (22:00)
[2022-04-10] MEDS: MELATONIN 5 MG TABLETS PO SCH ×2 (22:33→22:38)
[2022-04-11 06:07] VITALS: RESP 18
[2022-04-11 09:32] VITALS: BP 100/53; PULSE 107; TEMP 98.1
[2022-04-11] MEDS ORDERED: PRENATAL VITAMINS W/ FOLIC ACID TABLET (FP) PO SCH (10:00)
== END 2022-04-11 13:45 | disposition home or self-care (01) | DRG 897 ==
LOC: YASAS 12:01 → Y6N 13:15
PROVIDERS: ADMIT Allergy & Immunology; ATTEND Surgery
PROC: HZ2ZZZZ Detoxification Services for Substance Abuse Treatment (ICD-10-PCS; principal; 2022-04-10)
DX: F10.230 Alcohol dependence with withdrawal, uncomplicated (principal); F14.20 Cocaine dependence, uncomplicated; F19.282 Other psychoactive substance dependence with psychoactive substance-induced sleep disorder; F12.20 Cannabis dependence, uncomplicated; F17.210 Nicotine dependence, cigarettes, uncomplicated; F20.9 Schizophrenia, unspecified; F19.24 Other psychoactive substance dependence with psychoactive substance-induced mood disorder; B18.2 Chronic viral hepatitis C; Z62.810 Personal history of physical and sexual abuse in childhood; Z56.0 Unemployment, unspecified; Z59.00 Homelessness unspecified
CPT/HCPCS: 36415; 80053; 81025; 85027; 86780; 87811; 93005; 93010; C9803-CS; U0003; U0005